=== PATIENT | female | born 1970 | race American Indian/Alaskan Native ===

== ENCOUNTER 2021-04-14 16:26 | Observation (INO) | payer BC ==
[2021-04-14] MEDS ORDERED: ASPIRIN 325 MG TAB PO ONE (16:38)
--- NOTE | 2021-04-14 17:14 | XRay Report ---
CHEST 2 VIEWS INDICATION: CHEST PAIN. COMPARISON: None. FINDINGS: Support devices: None. Heart: Within normal limits. Lungs/Pleura: No acute air space or interstitial disease. No significant pleural effusion. IMPRESSION: No acute findings. Signer Name: Randy Castrejon MD Signed: 04/14/2021 5:10 PM Workstation Name: [id number]
[2021-04-14 17:21] LABS: Basophils # (Auto) 0.1 K/mm3 (0.0-0.1); Basophils % (Auto) 0.7 % (0.0-1.8); Eosinophils # (Auto) 0.1 K/mm3 (0.0-0.4); Eosinophils % (Auto) 1.3 % (0.0-4.3); Hematocrit 38.1 % (30.3-42.9); Hemoglobin 11.8 gm/dl (10.1-14.3); Lymphocytes # (Auto) 2.1 K/mm3 (1.2-5.4); Mean Corpuscular HGB Conc 31 % (30-34); Mean Corpuscular Volume 83 fl (79-97); Monocytes # (Auto) 0.6 K/mm3 (0.0-0.8); Monocytes % (Auto) 7.6 % (0.0-7.3); Platelet Count 244 K/mm3 (140-440); Red Blood Count 4.59 M/mm3 (3.65-5.03); Red Cell Distribution Width 15.6 % (13.2-15.2)
[2021-04-14 17:37] LABS: Alanine Aminotransferase 13 units/L (7-56); Albumin 4.6 g/dL (3.9-5); BUN/Creatinine Ratio 24; Blood Urea Nitrogen 19 mg/dL (7-17); Calcium 9.8 mg/dL (8.4-10.2); Hemolysis Index 12
[2021-04-14] MEDS ORDERED: ASPIRIN 81 MG TAB CHEW PO ONE (17:48)
[2021-04-14] MEDS ORDERED: HYDROcodone/ACETAMINOPHEN 5-325 MG TAB PO ONE (17:48)
--- NOTE | 2021-04-14 17:58 | Emergency Department Report ---
ED Chest Pain HPI - General Chief Complaint: Chest Pain Stated Complaint: CHEST PAIN PUI?: No Time Seen by Provider: 04/14/21 17:37 Source: patient Mode of arrival: Ambulatory Limitations: No Limitations - History of Present Illness Initial Comments: Chief complaint: Chest pain HPI: This is a 51-year-old female without significant past medical history who presents with severe 8 out of 10 chest pain sudden onset left side. Left-sided heaviness. Sensation of someone or something sitting on her chest. She has shortness of breath. She has mild nausea. She denies leg pain, cough, fever. No known sick contacts. 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 No recent travel. Family history of known cardiac disease. Mother had a history of vascular disease and cardiac disease. She had normal cardiac stress test 2 years ago in [place]. Her PCP at that time referred her to head sawyer for elevated blood pressure and abnormal chest x-ray. PCP Dr. Tor Mays. She denies history of hypertension MD Complaint: chest pain -: Sudden, hour(s) (1 hour prior to presentation) Onset: other (While standing at work) Pain Location: left chest Severity: severe Severity scale (0 -10): 8 Quality: heaviness, other (Sensation of something sitting on her chest) Improves With: nothing Worsens With: nothing re: nausea, dyspnea Treatments Prior to Arrival: none - Related Data Previous Rx's Medication Instructions Recorded Last Taken Type Ibuprofen [Motrin] 800 mg PO Q8H PRN #60 tablet 09/12/14 Unknown Rx methOCARBAMOL [Robaxin] 500 mg PO BID #10 tab 09/12/14 Unknown Rx traMADoL [Ultram] 50 mg PO Q6HR PRN #14 tablet 09/12/14 Unknown Rx Allergies Allergy/AdvReac Type Severity Reaction Status Date / Time No Known Allergies Allergy Verified 09/12/14 02:31 Heart Score - HEART Score History: Highly suspicious EKG: Non-specific Age: 45-65 Risk factors: 1-2 risk factors Troponin: < normal limit HEART Score: 5 - EKG Read Time Time EKG Completed: 16:47 EKG Read Time: 16:50 - Critical Actions Critical Actions: 4-6 pts:12-16.6% risk of adverse cardiac event. Should be admitted ED Review of Systems ROS: Stated complaint: CHEST PAIN Other details as noted in HPI Comment: All other systems reviewed and negative Constitutional: denies: chills, fever, malaise Respiratory: shortness of breath. denies: cough Cardiovascular: chest pain Gastrointestinal: nausea. denies: abdominal pain Skin: denies: rash, lesions ED Past Medical Hx - Past Medical History Previous Medical History?: No - Surgical History Past Surgical History?: Yes Additional Surgical History: Hysterectomy - Family History Family history: cancer (Breast cancer), hypertension, lung disease, renal disease, vascular disease - Social History Smoking Status: Never Smoker Substance Use Type: None - Medications Home Medications: Home Medications Medication Instructions Recorded Confirmed Last Taken Type Ibuprofen [Motrin] 800 mg PO Q8H PRN #60 tablet 09/12/14 Unknown Rx methOCARBAMOL [Robaxin] 500 mg PO BID #10 tab 09/12/14 Unknown Rx traMADoL [Ultram] 50 mg PO Q6HR PRN #14 tablet 09/12/14 Unknown Rx ED Physical Exam - General Limitations: No Limitations General appearance: alert, in no apparent distress, anxious, other (Tearful appears in severe pain) - Head Head exam: Present: atraumatic, normocephalic - Eye Eye exam: Present: normal appearance - ENT ENT exam: Present: mucous membranes moist - Neck Neck exam: Present: normal inspection, full ROM - Respiratory Respiratory exam: Present: normal lung sounds bilaterally. Absent: respiratory distress, wheezes, rales, rhonchi - Cardiovascular Cardiovascular Exam: Present: regular rate, normal rhythm, normal heart sounds. Absent: systolic murmur, diastolic murmur, rubs, gallop - GI/Abdominal GI/Abdominal exam: Present: soft, normal bowel sounds. Absent: distended, tenderness, guarding, rebound - Extremities Exam Extremities exam: Present: normal inspection - Neurological Exam Neurological exam: Present: alert, oriented X3 - Psychiatric Psychiatric exam: Present: normal affect, anxious - Skin Skin exam: Present: warm, dry, intact, normal color. Absent: rash ED Course Vital Signs 04/14/21 16:27 Temperature 98.8 F Pulse Rate 73 Respiratory 16 Rate Blood Pressure 161/85 [Right] O2 Sat by Pulse 100 Oximetry ED Medical Decision Making - Lab Data Result diagrams: 04/14/21 17:00 04/14/21 17:00 Laboratory Results - last 24 hr 04/14/21 04/14/21 17:00 17:00 WBC 7.4 RBC 4.59 Hgb 11.8 Hct 38.1 MCV 83 MCH 26 L MCHC 31 RDW 15.6 H Plt Count 244 Lymph % (Auto) 29.0 [place] % (Auto) 7.6 H Eos % (Auto) 1.3 Baso % (Auto) 0.7 Lymph # (Auto) 2.1 [place] # (Auto) 0.6 Eos # (Auto) 0.1 Baso # (Auto) 0.1 Seg Neutrophils % 61.4 Seg Neutrophils # 4.5 Sodium 139 Potassium 4.0 Chloride 102.8 Carbon Dioxide 25 Anion Gap 15 BUN 19 H Creatinine 0.8 Estimated GFR > 60 BUN/Creatinine Ratio 24 Glucose 97 Calcium 9.8 Total Bilirubin 0.20 AST 19 ALT 13 Alkaline Phosphatase 95 Troponin T < 0.010 Total Protein 7.7 Albumin 4.6 Albumin/Globulin Ratio 1.5 - EKG Data -: EKG Interpreted by Dc EKG shows normal: sinus rhythm, axis, intervals, QRS complexes Rate: normal - EKG Data Interpretation: nonspecific ST-T wave tay 04/14/21 17:57 EKG obtained 1647 EKG interpreted by pr Normal sinus rhythm rate 70 beats minute normal axis normal intervals nonspecific T wave pattern no ST elevation - Radiology Data Radiology results: report reviewed [facility] [address] [place] [address] XRay Report Signed Patient: SLOAN MILLER MR#: [id number] : 1970 Acct:[id number] Age/Sex: 51 / F ADM Date: 04/14/21 Loc: ED Attending Dr: Ordering Physician: AMITA QUINTERO MD Date of Service: 04/14/21 Procedure(s): XR chest routine 2V Accession Number(s): [id number] cc: AMITA QUINTERO MD Fluoro Time In Minutes: CHEST 2 VIEWS INDICATION: CHEST PAIN. COMPARISON: None. FINDINGS: Support devices: None. Heart: Within normal limits. Lungs/Pleura: No acute air space or interstitial disease. No significant pleural effusion. IMPRESSION: No acute findings. Signer Name: Randy Castrejon MD Signed: 04/14/2021 5:10 PM Workstation Name: [id number] Transcribed By: ES Dictated By: Randy Castrejon MD Electronically Authenticated By: Randy Castrejon MD Signed Date/Time: 04/14/21 171 DD/ 07 TD/TT: - Medical Decision Making Acute coronary syndrome: Heart score 5, patient presents with concerning story of family history of acute coronary syndrome. First troponin negative. Admitted to the hospital service. I have consulted head sawyer Dr. Bull who agreed to consult. Treatment in the emergency department included aspirin and analgesia. troponin x 2 negative, cbc bmp wnl Critical care attestation.: If time is entered above; I have spent that time in minutes in the direct care of this critically ill patient, excluding procedure time. ED Disposition Clinical Impression: Acute coronary syndrome Disposition: ADMITTED INPATIENT Is pt being admited?: Yes Does the pt Need Aspirin: No Condition: Stable
[2021-04-14] MEDS ORDERED: ASPIRIN 81 MG TAB CHEW ONE (18:47)
--- NOTE | 2021-04-14 19:21 | History and Physical Report ---
History of Present Illness Chief complaint: My chest hurts so bad History of present illness: 51 YO Riddhi with family history of cardiac disease presents to ED for evaluation. Patient states "my chest hurts real bad". Patient states that she experienced a sudden onset of left-sided chest pain today. Patient states that pain was 8/10, constant, crushing in nature, worsened with exertion, relieved with rest, associated with shortness of breath and nausea. Patient reports "it felt like an elephant was sitting on my chest". Patient transported to [facility] via private vehicle for further care and evaluation of the aforementioned symptoms. The patient was seen and evaluated in the emergency department and all lab and imaging studies reviewed. Patient was found to have angina. Patient admitted to telemetry and initiated on ACS protocol. Cardiology team consulted in ED. Echocardiogram ordered and pending at time of admission. Patient denies fever, chills, productive cough, skin rash, recent ill contacts, no disorder COVID-19. No prior admission for review. All medication listed at time of admission has been reconciled. Advanced care planning conducted in ED. Past History Past Medical History: No medical history, other (Reviewed) Past Surgical History: No surgical history (Reviewed), Other (Reviewed) Social history: , lives with family. denies: smoking, alcohol abuse Family history: CAD, hypertension, stroke Medications and Allergies Allergies Allergy/AdvReac Type Severity Reaction Status Date / Time No Known Allergies Allergy Verified 09/12/14 02:31 Home Medications Medication Instructions Recorded Confirmed Last Taken Type Ibuprofen [Motrin] 800 mg PO Q8H PRN #60 tablet 09/12/14 Unknown Rx methOCARBAMOL [Robaxin] 500 mg PO BID #10 tab 09/12/14 Unknown Rx traMADoL [Ultram] 50 mg PO Q6HR PRN #14 tablet 09/12/14 Unknown Rx Review of Systems Constitutional: no weight loss, no weight gain, no fever, no chills Ears, nose, mouth and throat: no ear pain, no ear discharge, no decreased hearing, no sinus pressure Breasts: no change in shape, no swelling, no mass Cardiovascular: chest pain, no orthopnea, no palpitations Respiratory: no cough, no cough with sputum, no hemoptysis, no shortness of breath Gastrointestinal: nausea, no abdominal pain, no vomiting, no diarrhea, no constipation Genitourinary Female: no pelvic pain, no flank pain, no dysuria, no urinary frequency, no urgency Rectal: no pain, no incontinence, no bleeding Musculoskeletal: no neck stiffness, no neck pain, no low back pain Integumentary: no rash, no pruritis, no redness, no sores, no wounds Neurological: no head injury, no paralysis, no parathesias, no numbness, no tingling, no seizures Psychiatric: no anxiety, no change in sleep habits, no insomnia, no change in appetite Endocrine: no cold intolerance, no polyphagia, no polydipsia, no polyuria Hematologic/Lymphatic: no easy bruising, no easy bleeding Allergic/Immunologic: no urticaria, no wheezing Exam - Constitutional Vitals: Temp Pulse Resp BP Pulse Ox 98.8 F 73 16 161/85 100 04/14/21 16:27 04/14/21 16:27 04/14/21 16:27 04/14/21 16:27 04/14/21 16:27 General appearance: Present: mild distress - EENT Eyes: Present: PERRL ENT: hearing intact, clear oral mucosa - Neck Neck: Present: supple, normal ROM - Respiratory Respiratory effort: normal Respiratory: bilateral: CTA - Cardiovascular Heart Sounds: Present: S1 & S2. Absent: rub, click - Extremities Extremities: pulses symmetrical, No edema Peripheral Pulses: within normal limits - Abdominal General gastrointestinal: Present: soft, non-tender, non-distended, normal bowel sounds Female genitourinary: Present: normal - Integumentary Integumentary: Present: clear, warm, dry - Musculoskeletal Musculoskeletal: gait normal, strength equal bilaterally - Psychiatric Psychiatric: appropriate mood/affect, intact judgment & insight - Neurologic Neurologic: CNII-XII intact, moves all extremities HEART Score - HEART Score EKG: Non-specific Age: 45-65 Risk factors: 1-2 risk factors Troponin: Troponin T < 0.010 ng/mL (0.00-0.029) 04/14/21 17:00 Troponin: < normal limit - Critical Actions Critical Actions: 4-6 pts:12-16.6% risk of adverse cardiac event. Should be admitted Results - Labs CBC & Chem 7: 04/14/21 17:00 04/14/21 17:00 Labs: Abnormal lab results 04/14/21 04/14/21 Range/Units 17:00 17:00 MCH 26 L (28-32) pg RDW 15.6 H (13.2-15.2) % [place] % (Auto) 7.6 H (0.0-7.3) % BUN 19 H (7-17) mg/dL Assessment and Plan - Patient Problems (1) Acute coronary syndrome Current Visit: Yes Status: Acute Plan to address problem: Angina at rest: Chest pain protocol. Serial cardiac enzymes, EKG, echocardiogram, telemetry, supplemental oxygen, blood pressure control, morphine, supplemental oxygen, nitro, aspirin (2) DVT prophylaxis Current Visit: Yes Status: Acute Plan to address problem: SCD to bilateral lower extremities while in bed, patient is ambulatory (3) Advance care planning Current Visit: Yes Status: Acute Plan to address problem: Disease education conducted, care plan discussed, diagnosis discussed, prognosis discussed, patient is full code, patient acknowledges understanding and agreement with care plan.
[2021-04-14] MEDS ORDERED: oxyCODONE /ACETAMINOPHEN 5-325MG TAB PO PRN (19:23)
[2021-04-14] MEDS ORDERED: ONDANSETRON 4 MG/2 ML INJ IV PRN (19:23)
[2021-04-14] MEDS ORDERED: HYDROmorphone 1 MG/1 ML INJ IV PRN (19:23)
[2021-04-14] MEDS ORDERED: ALBUTEROL 2.5 MG/3 ML NEBU IH PRN (19:23)
[2021-04-14] MEDS ORDERED: ACETAMINOPHEN 325 MG TAB PO PRN ×2 (19:23→21:09)
[2021-04-14] MEDS ORDERED: traMADol 50 MG TAB PO PRN ×2 (19:26→21:09)
[2021-04-15 05:01] VITALS: BP 127/73
--- NOTE | 2021-04-15 10:13 | Consultation ---
History of Present Illness Consult date: 04/15/21 Consult reason: chest pain History of present illness: The patient is a 51-year-old woman admitted through the emergency room for ev aluation of chest pain. She describes left lower sternal pain which is positional, worse with breathing and also worse with palpation. There is no exertional component to her pain. ECG in the emergency room was a sinus bradycardia with no ST or T wave changes. Troponin level was normal. She was admitted and cardiac consultation was requested. The patient has had an extensive recent cardiac ischemic work-up. Four months ago, a cardiac catheterization done at [facility] reported essentially angiographically normal coronary arteries. Left ventricular systolic function was normal with left ventricular ejection fraction 55%. Today, an echocardiogram at this hospital also revealed well-preserved left ventricular systolic ejection fraction 50 to 55%. Past History Past Medical History: hypertension Past Surgical History: No surgical history (Reviewed), Other (Reviewed) Social history: , lives with family. denies: smoking, alcohol abuse Family history: CAD, hypertension, stroke Medications and Allergies Allergies Allergy/AdvReac Type Severity Reaction Status Date / Time No Known Allergies Allergy Verified 09/12/14 02:31 Home Medications Medication Instructions Recorded Confirmed Last Taken Type Ibuprofen [Motrin 800 MG tab] 800 mg PO Q8H PRN #60 tablet 09/12/14 Unknown Rx methOCARBAMOL [Robaxin TAB] 500 mg PO BID #10 tab 09/12/14 Unknown Rx traMADoL [Ultram 50 MG tab] 50 mg PO Q6HR PRN #14 tablet 09/12/14 Unknown Rx Pantoprazole [Protonix] 40 mg PO QDAY #14 tablet 04/15/21 Unknown Rx Active Meds: Active Medications Acetaminophen (Acetaminophen 325 Mg Tab) 650 mg PO Q4H PRN PRN Reason: Pain MILD(1-3)/Fever >100.5/STARR Albuterol (Albuterol 2.5 Mg/3 Ml Nebu) 2.5 mg IH Q4HRT PRN PRN Reason: Shortness Of Breath Hydromorphone HCl (Hydromorphone 1 Mg/1 Ml Inj) 0.5 mg IV Q23H PRN PRN Reason: Pain , Severe (7-10) Methocarbamol (Methocarbamol 500 Mg Tab) 500 mg PO BID ANDER Last Admin: 04/15/21 10:04 Dose: Not Given Ondansetron HCl (Ondansetron 4 Mg/2 Ml Inj) 4 mg IV Q8H PRN PRN Reason: Nausea And Vomiting Oxycodone/Acetaminophen (Oxycodone /Acetaminophen 5-325mg Tab) 1 tab PO Q16H PRN PRN Reason: Pain, Moderate (4-6) Sodium Chloride (Sodium Chloride 0.9% 10 Ml Flush Syringe) 10 ml IV BID ANDER Last Admin: 04/15/21 10:04 Dose: 10 ml Sodium Chloride (Sodium Chloride 0.9% 10 Ml Flush Syringe) 10 ml IV PRN PRN PRN Reason: LINE FLUSH Tramadol HCl (Tramadol 50 Mg Tab) 50 mg PO Q6H PRN PRN Reason: Pain, Moderate (4-6) Review of Systems Cardiovascular: chest pain, no orthopnea, no palpitations, no rapid/irregular heart beat, no edema, no syncope, no lightheadedness, no shortness of breath Physical Examination Vital Signs Temp Pulse Resp BP Pulse Ox 98.8 F 73 16 161/85 100 04/14/21 16:27 04/14/21 16:27 04/14/21 16:27 04/14/21 16:27 04/14/21 16:27 General appearance: no acute distress HEENT: Positive: PERRL Neck: Positive: neck supple Cardiac: Positive: Reg Rate and Rhythm Lungs: Positive: Decreased Breath Sounds Neuro: Positive: Grossly Intact Abdomen: Positive: Soft Female genitourinary: deferred Skin: Positive: Clear Extremities: Absent: edema Results 04/14/21 17:00 04/14/21 17:00 Cardiac Enzymes 04/14/21 Range/Units 17:00 AST 19 (5-40) units/L CBC 04/14/21 Range/Units 17:00 WBC 7.4 (4.5-11.0) K/mm3 RBC 4.59 (3.65-5.03) M/mm3 Hgb 11.8 (10.1-14.3) gm/dl Hct 38.1 (30.3-42.9) % Plt Count 244 (140-440) K/mm3 Lymph # (Auto) 2.1 (1.2-5.4) K/mm3 Saline # (Auto) 0.6 (0.0-0.8) K/mm3 Eos # (Auto) 0.1 (0.0-0.4) K/mm3 Baso # (Auto) 0.1 (0.0-0.1) K/mm3 Comprehensive Metabolic Panel 04/14/21 Range/Units 17:00 Sodium 139 (137-145) mmol/L Potassium 4.0 (3.6-5.0) mmol/L Chloride 102.8 (98-107) mmol/L Carbon Dioxide 25 (22-30) mmol/L BUN 19 H (7-17) mg/dL Creatinine 0.8 (0.6-1.2) mg/dL Glucose 97 (65-100) mg/dL Calcium 9.8 (8.4-10.2) mg/dL AST 19 (5-40) units/L ALT 13 (7-56) units/L Alkaline Phosphatase 95 (35-129) units/L Total Protein 7.7 (6.3-8.2) g/dL Albumin 4.6 (3.9-5) g/dL EKG interpretations - Telemetry EKG Rhythm: Sinus Bradycardia Assessment and Plan - Patient Problems (1) Atypical chest pain Current Visit: Yes Status: Acute Plan to address problem: Patient presents with atypical chest pain, musculoskeletal characteristics. ECG shows no ischemic changes, troponin is negative. Patient had a normal cardiac catheterization done just 4 months ago. No further cardiac work-up is indicated for musculoskeletal type chest pain. I have ordered a trial of Toradol intravenously for management of musculoskeletal pain.
--- NOTE | 2021-04-15 12:55 | Discharge Summary ---
Providers - Providers Date of Admission: 04/14/21 19:23 Date of discharge: 04/15/21 Attending physician: MALIKA LALA 04/14/21 Consult to Cardiac Rehabilitation [CONS] Routine Reason For Exam: Phase I 04/14/21 18:00 Consult to Physician [CONS] Stat Comment: Consulting Provider: LASHAE ESTEVEZ Physician Instructions: Reason For Exam: Acute coronary syndrome Primary care physician: MANOHAR CAR Hospitalization Condition: Stable Hospital course: The patient is a 51-year-old woman with a history of hypertension and obesity admitted through the emergency room for evaluation of chest pain. She describes left lower sternal pain which is positional, worse with breathing and also worse with palpation. There is no exertional component to her pain. ECG in the emergency room was a sinus bradycardia with no ST or T wave changes. Troponin level was normal. She was admitted and cardiac consultation was requested. Four months ago, a cardiac catheterization done at [facility] reported essentially angiographically normal coronary arteries. Left ventricular systolic function was normal with left ventricular ejection fraction 55%. Today, an echocardiogram at this hospital also revealed well-preserved left ventricular systolic ejection fraction 50 to 55%. per cardiology Patient presents with atypical chest pain, musculoskeletal characteristics and ordered a trial of Toradol intravenously for management of musculoskeletal pain. Patient was monitored overnight at telemetry, noted to be in sinus bradycardia. Medications were adjusted for blood pressure management. Patient was then discharged home in stable condition with outpatient follow-up with cardiology in 1 week. Disposition: HOME / SELF CARE / HOMELESS Final Discharge Diagnosis (Prints w/discharge instructions): -- Atypical chest pain, musculoskeletal. -- Hypertension. -- Sinus bradycardia. -- Obesity Time spent for discharge: 34 minutes Core Measure Documentation - Palliative Care Palliative Care/ Comfort Measures: Not Applicable - Core Measures Any of the following diagnoses?: none Exam - Physical Exam Narrative exam: GENERAL: well-developed and well-nourished AAF lying on bed appeared to be in no discomfort. HEENT: Normocephalic. Atraumatic. No conjunctival congestion or icterus. Patient has moist mucous membranes. NECK: Supple. Trachea midline. CHEST/LUNGS: Clear to auscultated bilaterally, breathing nonlabored. No wheezes crackles or rhonchi. HEART/CARDIOVASCULAR: Regular in rate and rhythm. S1 and S2 positive. ABDOMEN: Abdomen is soft, nontender. Patient has normal bowel sounds. SKIN: There is no rash. Warm and dry. NEURO: No focal motor deficit. Follows command. MUSCULOSKELETAL: No joint effusion or tenderness. EXTRIMITY: No edema, no cyanosis or clubbing. PSYCH: Cooperative. - Constitutional Vitals: Temp Pulse Resp BP Pulse Ox 97.7 F 51 L 16 127/73 100 04/15/21 04:48 04/15/21 08:21 04/15/21 04:48 04/15/21 04:48 04/15/21 08:21 Plan Activity: advance as tolerated Weight Bearing Status: Weight Bear as Tolerated Diet: low fat, low salt Special Instructions: record daily BP diary Follow up with: MANOHAR CAR JR, MD [Primary Care Provider] - 3-5 Days LASHAE ESTEVEZ MD [Staff Physician] - 7 Days Prescriptions: Pantoprazole [Protonix] 40 mg PO QDAY #14 tablet
[2021-04-15] MEDS ORDERED: KETOROLAC 30 MG/1 ML INJ IV SCH (14:00)
== END 2021-04-15 15:32 | disposition home or self-care (01) ==
LOC: ED 16:26 → 4A 19:23
PROVIDERS: ADMIT Internal Medicine; ATTEND Internal Medicine
DX: I24.9 Acute ischemic heart disease, unspecified (principal); R07.89 Other chest pain; I10 Essential (primary) hypertension; R00.1 Bradycardia, unspecified; E66.9 Obesity, unspecified; Z90.710 Acquired absence of both cervix and uterus; Z79.899 Other long term (current) drug therapy; Z98.890 Other specified postprocedural states; Z68.30 Body mass index [BMI] 30.0-30.9, adult
CPT/HCPCS: 36415; 71046; 80053; 84484; 85025; 93005; 93306; 99285; G0378